=== PATIENT | female | born 2000 | race American Indian/Alaskan Native ===

== ENCOUNTER 2021-12-29 09:01 | Emergency (ER) | payer MEDICAID ==
[2021-12-29] MEDS ORDERED: HYDROcodone/ACETAMINOPHEN 5-325 MG TAB PO ONE (09:21)
[2021-12-29] MEDS ORDERED: AMOXICILLIN/K CLAV 875/125MG TAB PO ONE (09:21)
[2021-12-29 09:22] VITALS: BP 129/76
--- NOTE | 2021-12-29 09:24 | Emergency Department Report ---
ED Animal Bite HPI - General Chief Complaint: Animal Bite Stated Complaint: CAT BITE ON FINGER Time Seen by Provider: 12/29/21 09:21 Source: patient Mode of arrival: Ambulatory Limitations: No Limitations - History of Present Illness Initial Comments: 21 yo comes to ER p her dog attacked cat. She attempted to break the 2 up and was "bit by cat or dog." Cat is in her back yard. Animal control to be called Her dog utd on immunzations Complaint: animal bite -: Sudden, hour(s) Location: other Animal: dog, cat Animal Control Notified: Yes Description: household pet Mechanism: bite Context: animals fighting Associated Symptoms: none Treatments Prior to Arrival: wound dressing(s) - Related Data Patient Tetanus UTD: Yes Previous Rx's Medication Instructions Recorded Last Taken Type Amoxicillin/K Clav Tab [Augmentin 1 tab PO Q12HR #20 tab 12/29/21 Unknown Rx 875 mg] Allergies Allergy/AdvReac Type Severity Reaction Status Date / Time No Known Allergies Allergy Verified 12/29/21 09:25 ED Review of Systems ROS: Stated complaint: CAT BITE ON FINGER Other details as noted in HPI Comment: All other systems reviewed and negative ED Past Medical Hx - Past Medical History Previous Medical History?: No - Surgical History Past Surgical History?: No - Family History Family history: no significant - Social History Smoking Status: Current Every Day Smoker Substance Use Type: None - Medications Home Medications: Home Medications Medication Instructions Recorded Confirmed Last Taken Type Amoxicillin/K Clav Tab [Augmentin 1 tab PO Q12HR #20 tab 12/29/21 Unknown Rx 875 mg] ED Physical Exam - General Limitations: No Limitations General appearance: alert, in no apparent distress - Head Head exam: Present: atraumatic, normocephalic - Eye Eye exam: Present: normal appearance - ENT ENT exam: Present: mucous membranes moist - Neck Neck exam: Present: normal inspection - Respiratory Respiratory exam: Present: normal lung sounds bilaterally. Absent: respiratory distress - Cardiovascular Cardiovascular Exam: Present: regular rate, normal rhythm. Absent: systolic murmur, diastolic murmur, rubs, gallop - GI/Abdominal GI/Abdominal exam: Present: soft, normal bowel sounds - Extremities Exam Extremities exam: Present: normal inspection - Back Exam Back exam: Present: normal inspection - Neurological Exam Neurological exam: Present: alert, oriented X3 - Psychiatric Psychiatric exam: Present: normal affect, normal mood - Skin Skin exam: Present: warm, dry, intact, normal color, other. Absent: rash ED Course Vital Signs 12/29/21 12/29/21 09:21 10:46 Temperature 98.4 F Pulse Rate 78 78 Respiratory 16 16 Rate Blood Pressure 129/76 129/76 [Left] O2 Sat by Pulse 100 100 Oximetry - Reevaluation(s) Reevaluation #3: 12/29/21 wound cleaned tdap utd animal control to be called educated on rabies and import of animal control testing cat dc home with dc paln of care including diet, meds, follow up and animal control follow up for rabies. pt and her mother verbalize understanding. Vital Signs 12/29/21 12/29/21 09:21 10:46 Temperature 98.4 F Pulse Rate 78 78 Respiratory 16 16 Rate Blood Pressure 129/76 129/76 [Left] O2 Sat by Pulse 100 100 Oximetry Critical care attestation.: If time is entered above; I have spent that time in minutes in the direct care of this critically ill patient, excluding procedure time. ED Disposition Clinical Impression: Animal bite Disposition: 01 HOME / SELF CARE / HOMELESS Is pt being admited?: No Does the pt Need Aspirin: No Condition: Stable Instructions: Animal Bite, Adult Additional Instructions: KEEP WOUND CLEAN FOLLOW UP WITH ANIMAL CONTROL WE DISCUSSED MED ORDERED TODAY Prescriptions: Amoxicillin/K Clav Tab [Augmentin 875 mg] 1 tab PO Q12HR #20 tab Referrals: HARINDER MENG MD [Staff Physician] - 3-5 Days Forms: Work/School Release Form(ED) Time of Disposition: 09:48
== END 2021-12-29 10:47 | disposition home or self-care (01) ==
LOC: ED 09:01
DX: S61.259A Open bite of unspecified finger without damage to nail, initial encounter (principal); W55.01XA Bitten by cat, initial encounter; Y93.89 Activity, other specified; Y92.89 Other specified places as the place of occurrence of the external cause; Y99.8 Other external cause status
CPT/HCPCS: 99282